=== PATIENT | male | born 1965 | race Caucasian/White ===

== ENCOUNTER 2023-07-05 15:10 | Emergency (ER) | payer OTHER ==
[~2023-07-05] VITALS: Ht 157.5 cm; Wt 71.0 kg
[2023-07-05 15:16] VITALS: BP 154/82; PULSE 84; RESP 19; TEMP 98; O2SAT 99
[2023-07-05 16:09] LABS: BASOPHILS % 0.8 % (0.0-2.0); DIFFERENTIAL COMMENT 0; EOSINOPHILS % 6.5 % (0.0-5.0); HEMATOCRIT. 40.5 % (42.0-52.0); HEMOGLOBIN. 14.5 g/dL (14.0-18.0); LYMPHOCYTES % 24.3 % (20.0-50.0); MEAN CORPUSCULAR HEMOGLOBIN 30.5 pg (28.0-32.0); MEAN CORPUSCULAR HGB CONC 35.8 g/dL (31.0-37.0); MEAN CORPUSCULAR VOLUME 85.2 fL (80.0-94.0); MEAN PLATELET VOLUME 8.4 fl (7.4-10.4); MONOCYTES % 6.2 % (2.0-8.0); NEUTROPHILS % 62.2 % (40.0-76.0); PLATELET 259 x1000/uL (130-400); RED BLOOD CELL COUNT 4.75 mill/uL (4.7-6.1); RED CELL DISTRIBUTION WIDTH 13.5 % (11.6-14.6)
[2023-07-05 16:36] LABS: BETA HYDROXYBUTYRATE 0.3 mMol/L (0.0-0.3); CALCIUM 8.8 mg/dL (8.7-10.4); CARBON DIOXIDE 26 mEq/L (21-32); CHLORIDE 97 mEq/L (98-107); GLUCOSE 385 mg/dL (70-105); POTASSIUM 3.8 mEq/L (3.5-5.1); SODIUM 130 mEq/L (136-145); UREA NITROGEN BLOOD 8 mg/dL (9-23)
== END 2023-07-05 16:48 | disposition home or self-care (01) ==
LOC: ER 15:10
DX: E11.65 Type 2 diabetes mellitus with hyperglycemia (principal)
CPT/HCPCS: 36415; 80048; 82010; 82962; 85025; 99283